=== PATIENT | female | born 1950 | race Caucasian/White ===

== ENCOUNTER → 2017-03-24 | Outpatient (CLI) | payer OTHER ==
[~2017-03-24] MED LIST: CELEBREX200 MG PO; CYMBALTA30 MG PO; ELAVIL25 MG PO; ESTRACE2 MG PO; FIORINAL 50-321 EACH PO; LEFLUNOMIDE10 MG PO; MEDROXYPROGEST2.5 MG PO; NASONEX17 GM NASBOTH; NEURONTIN100 MG PO; PRILOSEC20 MG PO; PROAIR HFA8.5 GM INH; TRAZODONE HCL50 MG PO; ULTRAM50 MG PO; VITAMIN D400 UNIT PO; VOLTAREN100 GM TOP
== END | disposition short-term general hospital (02) ==
LOC: CLENT 03-10 04:46
DX: H90.5 Unspecified sensorineural hearing loss (principal); M06.9 Rheumatoid arthritis, unspecified